=== PATIENT | male | born 1970 | race African-American/Black ===

== ENCOUNTER 2016-12-24 05:39 | Day surgery (SDC) | payer MEDICARE, MEDICAID ==
[~2016-12-24] VITALS: Ht 167.6 cm; Wt 79.4 kg
[~2016-12-24 05:39] MED LIST: ACET-2178; PHEN-434
[2016-12-24] MEDS ORDERED: LISI-604 PO (06:36)
[2016-12-24] MEDS ORDERED: RISP1 PO (06:36)
[2016-12-24] MEDS ORDERED: OMEP20CA10 PO (06:36)
[2016-12-24] MEDS ORDERED: CARB300C6 PO (06:36)
[2016-12-24] MEDS ORDERED: LACTATED RINGERS 1,000 ML IV SCH (06:45)
[2016-12-24] MEDS ORDERED: SKIN ADHESIVE 0.7 GM EA TOP ONE ×2 (06:58→08:30)
[2016-12-24] MEDS ORDERED: BUPIVACAINE HCL 0.5% (5MG/ML) 50ML ONE (06:58)
[2016-12-24] MEDS ORDERED: SUCCINYLCHOLINE CHLORIDE 200MG/10ML VIAL IV ONE (07:26)
[2016-12-24] MEDS ORDERED: CEFAZOLIN SODIUM 1000MG/VIAL ONE (07:26)
[2016-12-24] MEDS ORDERED: LIDOCAINE HCL 1% 20ML VIAL (Pyxis) INJ ONE (07:26)
[2016-12-24] MEDS ORDERED: PROPOFOL 200MG/20ML VIAL IV ONE (07:26)
[2016-12-24] MEDS ORDERED: FENTANYL CITRATE/PF 50MCG/ML 2ML VIAL ONE (07:27)
[2016-12-24] MEDS ORDERED: MIDAZOLAM HCL 2 MG/2 ML VIAL ONE (07:27)
[2016-12-24] MEDS ORDERED: ONDANSETRON HCL 4MG/2ML VIAL IV PRN (07:30)
[2016-12-24] MEDS ORDERED: MEPERIDINE HCL/PF 25MG/ML CPJ IV PRN (07:30)
[2016-12-24] MEDS ORDERED: HYDROMORPHONE HCL/PF 2MG/ML CPJ IV PRN (07:30)
[2016-12-24] MEDS ORDERED: LABETALOL HCL 5MG/ML VIAL 20ML IV PRN (07:30)
[2016-12-24] MEDS ORDERED: EPHEDRINE SULFATE 50MG/ML VIAL ONE (08:15)
[2016-12-24] MEDS ORDERED: KETOROLAC 30MG/ML VIAL ONE (08:30)
[2016-12-24] MEDS ORDERED: BUPIVACAINE HCL 0.5% 290 ML in ON-Q PM015 DRUG DELIV DEVICE 1 EA IR SCH (08:30)
[2016-12-24] MEDS ORDERED: METOCLOPRAMIDE HCL 10MG/2ML VIAL ONE (08:35)
[2016-12-24] MEDS ORDERED: ONDANSETRON HCL 4MG/2ML VIAL ONE (08:35)
== END 2016-12-24 11:00 | disposition home or self-care (01) ==
LOC: OR 05:39
PROVIDERS: ATTEND Surgery
DX: K40.20 Bilateral inguinal hernia, without obstruction or gangrene, not specified as recurrent (principal); E66.3 Overweight; K21.9 Gastro-esophageal reflux disease without esophagitis; R56.9 Unspecified convulsions; I10 Essential (primary) hypertension
CPT/HCPCS: 49505; 82962; C1781; G0168; J0171; J0330; J0690; J1885; J2250; J2405; J2765; J3010; J3490; J7030; J2704; J7040

== ENCOUNTER 2016-12-28 09:57 | Emergency (ER) | payer MEDICARE, MEDICAID ==
[~2016-12-28] VITALS: Ht 167.6 cm; Wt 68.0 kg
[~2016-12-28 09:57] MED LIST changes: +CARB300C6 PO; +LISI-604 PO; +OMEP20CA10 PO; +RISP1 PO
[2016-12-28] MEDS ORDERED: FENTANYL CITRATE/PF 50MCG/ML 2ML VIAL IV ONE (11:00)
[2016-12-28 11:12] LABS: BASOPHILS % 0.8 % (0.0-2.0); EOSINOPHILS % 2.8 % (0.0-5.0); HEMATOCRIT. 41.4 % (42.0-52.0); HEMOGLOBIN. 14.1 g/dL (14.0-18.0); LYMPHOCYTES % 20.7 % (20.0-50.0); MEAN CORPUSCULAR HEMOGLOBIN 30.6 pg (28.0-32.0); MEAN CORPUSCULAR VOLUME 89.4 fL (80.0-94.0); MEAN PLATELET VOLUME 7.7 fl (7.4-10.4); MONOCYTES % 5.8 % (2.0-8.0); NEUTROPHILS % 69.9 % (40.0-76.0); PLATELET 344 x1000/uL (130-400); RED BLOOD CELL COUNT 4.63 mill/uL (4.7-6.1); RED CELL DISTRIBUTION WIDTH 14.5 % (11.6-14.6)
[2016-12-28 11:27] LABS: CARBON DIOXIDE 31 mEq/L (21-32); CHLORIDE 103 mEq/L (98-107)
[2016-12-28 11:31] LABS: PROTHROMBIN TIME 10.2 sec (9.4-11.6)
[2016-12-28 11:54] LABS: CLARITY URINE CLEAR (CLEAR); COLOR URINE YELLOW (YELLOW); GLUCOSE URINE NEGATIVE (NEGATIVE); KETONES URINE NEGATIVE (NEGATIVE); LEUKOCYTE ESTERASE URINE NEGATIVE (NEGATIVE); NITRITE URINE NEGATIVE (NEGATIVE); OCCULT BLOOD URINE NEGATIVE (NEGATIVE); PH URINE 5.5 (4.5-8.0); PROTEIN URINE NEGATIVE (NEGATIVE); SPECIFIC GRAVITY URINE 1.026 (1.005-1.030)
[2016-12-28 12:30] VITALS: BP 139/87
== END 2016-12-28 12:44 | disposition home or self-care (01) ==
LOC: ER 10:17
DX: Z98.890 Other specified postprocedural states (principal); R10.30 Lower abdominal pain, unspecified; R11.2 Nausea with vomiting, unspecified; I10 Essential (primary) hypertension; E11.9 Type 2 diabetes mellitus without complications; G40.909 Epilepsy, unspecified, not intractable, without status epilepticus; F17.210 Nicotine dependence, cigarettes, uncomplicated
CPT/HCPCS: 36415; 80053; 81003; 83690; 85025; 85610; 96374; 99284; J3010

== ENCOUNTER 2023-08-07 13:31 | Emergency (ER) | payer MEDICARE, MEDICAID ==
[~2023-08-07] VITALS: Ht 177.8 cm; Wt 92.0 kg
[~2023-08-07 13:31] MED LIST changes: -ACET-2178; -CARB300C6 PO; +CARB300C9 PO; -LISI-604 PO; +LISI20TA31 PO; -OMEP20CA10 PO; +OMEP20CA14 PO; +TOPUD
[2023-08-07 13:39] VITALS: BP 154/87; PULSE 90; RESP 16; TEMP 98.2; O2SAT 100
[2023-08-07] MEDS ORDERED: OFLO5DRO4 RIGHT EAR (15:10)
== END 2023-08-07 15:34 | disposition home or self-care (01) ==
LOC: ER 13:31
DX: T16.1XXA Foreign body in right ear, initial encounter (principal); I10 Essential (primary) hypertension; E11.9 Type 2 diabetes mellitus without complications; Z86.59 Personal history of other mental and behavioral disorders; W44.9XXA Unspecified foreign body entering into or through a natural orifice, initial encounter; Y93.89 Activity, other specified; Y92.89 Other specified places as the place of occurrence of the external cause; Y99.8 Other external cause status
CPT/HCPCS: 69200; 99283; 99284

== ENCOUNTER 2024-02-03 11:49 | Emergency (ER) | payer MEDICARE, MEDICAID ==
[~2024-02-03] VITALS: Ht 167.6 cm; Wt 65.0 kg
[~2024-02-03 11:49] MED LIST changes: +OFLO5DRO4 RIGHT EAR
[2024-02-03 11:54] VITALS: BP 169/87; TEMP 98.8; O2SAT 99
[2024-02-03] MEDS ORDERED: KETOROLAC 15MG/ML VIAL IM ONE (13:30)
[2024-02-03 14:05] LABS: BASOPHILS % 0.9 % (0.0-2.0); EOSINOPHILS % 0.4 % (0.0-5.0); HEMATOCRIT. 43.2 % (42.0-52.0); HEMOGLOBIN. 14.3 g/dL (14.0-18.0); LYMPHOCYTES % 21.9 % (20.0-50.0); MEAN CORPUSCULAR HEMOGLOBIN 30.2 pg (28.0-32.0); MEAN CORPUSCULAR HGB CONC 33.1 g/dL (31.0-37.0); MEAN CORPUSCULAR VOLUME 91.4 fL (80.0-94.0); MEAN PLATELET VOLUME 8.8 fl (7.4-10.4); NEUTROPHILS % 71.8 % (40.0-76.0); PLATELET 288 x1000/uL (130-400); RED BLOOD CELL COUNT 4.73 mill/uL (4.7-6.1); RED CELL DISTRIBUTION WIDTH 14.3 % (11.6-14.6); WHITE BLOOD COUNT 8.5 x1000/uL (4.5-11.0)
[2024-02-03 14:13] LABS: CHLORIDE 103 mEq/L (98-107); POTASSIUM 4.2 mEq/L (3.5-5.1); SODIUM 140 mEq/L (136-145)
[2024-02-03 14:14] LABS: CALCIUM 9.8 mg/dL (8.7-10.4); CARBON DIOXIDE 31 mEq/L (21-32)
[2024-02-03 14:14] LABS: CLARITY URINE CLEAR (CLEAR); COLOR URINE DARK YELLOW (YELLOW); GLUCOSE URINE NEGATIVE (NEGATIVE); KETONES URINE 2+ (NEGATIVE); LEUKOCYTE ESTERASE URINE NEGATIVE (NEGATIVE); NITRITE URINE NEGATIVE (NEGATIVE); OCCULT BLOOD URINE NEGATIVE (NEGATIVE); PROTEIN URINE 1+ (NEGATIVE); SPECIFIC GRAVITY URINE 1.024 (1.005-1.030)
[2024-02-03 14:19] LABS: CREATININE 1.3 mg/dL (0.6-1.3); GLUCOSE 93 mg/dL (70-105); UREA NITROGEN BLOOD 13 mg/dL (9-23)
[2024-02-03 15:03] LABS: MUCUS URINE 3+ /lpf (NONE/TRACE); WBC URINE 0-2 /hpf (0-2)
[2024-02-03 15:05] LABS: BACTERIA URINE TRACE; SQUAMOUS EPITHELIAL CELL URINE RARE /lpf (RARE/1+)
[2024-02-03 17:18] VITALS: PULSE 67; RESP 16; O2SAT 97
[2024-02-03] MEDS: KETOROLAC 15MG/ML VIAL IM NR (17:20)
== END 2024-02-03 17:28 | disposition home or self-care (01) ==
LOC: ER 12:49
DX: N43.3 Hydrocele, unspecified (principal); E11.9 Type 2 diabetes mellitus without complications; I10 Essential (primary) hypertension; Z79.899 Other long term (current) drug therapy; Z98.890 Other specified postprocedural states
CPT/HCPCS: 99285; 74176; 93976; 80048; 81003; 83690; 85025; 36415; 76870; 96372; J1885

== ENCOUNTER 2024-04-30 07:40 | Emergency (ER) | payer MEDICARE, MEDICAID ==
[~2024-04-30] VITALS: Ht 167.6 cm; Wt 68.0 kg
[2024-04-30 07:51] VITALS: O2SAT 98
[2024-04-30 08:22] LABS: CHLORIDE 104 mEq/L (98-107); POTASSIUM 4.5 mEq/L (3.5-5.1); SODIUM 140 mEq/L (136-145)
[2024-04-30] MEDS: ACETAMINOPHEN 325MG TABLET PO ONE (08:22)
[2024-04-30 08:23] LABS: CALCIUM 9.3 mg/dL (8.7-10.4); CARBON DIOXIDE 30 mEq/L (21-32)
[2024-04-30 08:25] LABS: BASOPHILS % 0.9 % (0.0-2.0); EOSINOPHILS % 1.6 % (0.0-5.0); HEMATOCRIT. 44.3 % (42.0-52.0); HEMOGLOBIN. 14.3 g/dL (14.0-18.0); LYMPHOCYTES % 17.9 % (20.0-50.0); MEAN CORPUSCULAR HEMOGLOBIN 29.4 pg (28.0-32.0); MEAN CORPUSCULAR HGB CONC 32.1 g/dL (31.0-37.0); MEAN CORPUSCULAR VOLUME 91.3 fL (80.0-94.0); MEAN PLATELET VOLUME 8.3 fl (7.4-10.4); NEUTROPHILS % 73.6 % (40.0-76.0); PLATELET 337 x1000/uL (130-400); RED BLOOD CELL COUNT 4.85 mill/uL (4.7-6.1); RED CELL DISTRIBUTION WIDTH 14.6 % (11.6-14.6); WHITE BLOOD COUNT 7.5 x1000/uL (4.5-11.0)
[2024-04-30 08:28] LABS: CREATININE 1.2 mg/dL (0.6-1.3); GLUCOSE 104 mg/dL (70-105); UREA NITROGEN BLOOD 15 mg/dL (9-23)
[2024-04-30 08:30] LABS: ALANINE AMINOTRANSFERASE 14 IU/L (10-49); ALBUMIN 4.6 g/dL (3.2-4.8); ASPARTATE AMINOTRANSFERASE 15 IU/L (<34); BILIRUBIN DIRECT 0.1 mg/dL (<=3.0); BILIRUBIN TOTAL 0.5 mg/dL (0.1-1.0)
[2024-04-30 08:31] LABS: PROTEIN TOTAL 7.3 g/dL (6.0-8.3)
[2024-04-30 08:58] LABS: CLARITY URINE CLEAR (CLEAR); COLOR URINE YELLOW (YELLOW); GLUCOSE URINE NEGATIVE (NEGATIVE); KETONES URINE NEGATIVE (NEGATIVE); LEUKOCYTE ESTERASE URINE NEGATIVE (NEGATIVE); NITRITE URINE NEGATIVE (NEGATIVE); OCCULT BLOOD URINE TRACE (NEGATIVE); PH URINE 5.5 (4.5-8.0); PROTEIN URINE NEGATIVE (NEGATIVE); SPECIFIC GRAVITY URINE 1.022 (1.005-1.030)
[2024-04-30 09:51] LABS: MUCUS URINE 1+ /lpf (NONE/TRACE); SQUAMOUS EPITHELIAL CELL URINE FEW /lpf (RARE/1+)
[2024-04-30 09:52] LABS: BACTERIA URINE TRACE
[2024-04-30 09:53] LABS: RBC URINE 0-2 /hpf (0-2); WBC URINE 0-2 /hpf (0-2)
[2024-04-30] MEDS ORDERED: ACET-2708 MT (09:59)
[2024-04-30] MEDS ORDERED: NITR-87 MT (10:05)
[2024-04-30 11:00] VITALS: BP 158/67; PULSE 66; RESP 18; TEMP 36.8; O2SAT 99
== END 2024-04-30 11:19 | disposition home or self-care (01) ==
LOC: ER 07:40
DX: R10.30 Lower abdominal pain, unspecified (principal); I10 Essential (primary) hypertension; E11.9 Type 2 diabetes mellitus without complications; Z79.899 Other long term (current) drug therapy
CPT/HCPCS: 36415; 74176; 80048; 80076; 81003; 85025; 86850; 86900; 99284